=== PATIENT | male | born 1955 | race Caucasian/White ===

== ENCOUNTER → 2020-10-06 12:55 | Outpatient (BNVA) | payer SELFPAY | PROVIDERS: PCP Internal Medicine; Visit Provider Physician Assistant Medical | DX: Z02.79 Encounter for issue of other medical certificate (principal) ==

== ENCOUNTER 2021-12-09 14:39 | Emergency (ER) | payer OTHER, SELFPAY ==
--- NOTE | ~2021-12-09 | XR_ITS ---
EXAMINATION: BILATERAL FINGER X-RAY CLINICAL INFORMATION: Crush injury COMPARISON: None TECHNIQUE: 3 views of each thumb FINDINGS: Left: No acute fracture or dislocation is seen. There is air in the soft tissues adjacent to the volar IP joint of the left thumb. There is mild arthritis at the first MCP joint and first HALF-WAY joints. There is question of old trauma to the distal tuft of the second finger. Soft tissues are unremarkable. Right: There is a evidence of trauma to the soft tissues over the distal phalanx of the thumb. No fracture or soft tissue foreign body is seen. There is mild arthritis at the first MCP and HALF-WAY joints. XR/XR finger LT min 2V IMPRESSION: Right: Significant trauma to the soft tissues over the distal thumb. No fracture or soft tissue foreign body. Left: Small amount of air in the soft tissues adjacent to the volar IP joint of the left lung.
--- NOTE | ~2021-12-09 | XR_ITS ---
EXAMINATION: BILATERAL FINGER X-RAY CLINICAL INFORMATION: Crush injury COMPARISON: None TECHNIQUE: 3 views of each thumb FINDINGS: Left: No acute fracture or dislocation is seen. There is air in the soft tissues adjacent to the volar IP joint of the left thumb. There is mild arthritis at the first MCP joint and first ALF joints. There is question of old trauma to the distal tuft of the second finger. Soft tissues are unremarkable. Right: There is a evidence of trauma to the soft tissues over the distal phalanx of the thumb. No fracture or soft tissue foreign body is seen. There is mild arthritis at the first MCP and ALF joints. XR/XR finger RT min 2V IMPRESSION: Right: Significant trauma to the soft tissues over the distal thumb. No fracture or soft tissue foreign body. Left: Small amount of air in the soft tissues adjacent to the volar IP joint of the left lung.
[2021-12-09 14:52] VITALS: BP 129/93; PULSE 90; RESP 18; TEMP 36.9; O2SAT 97; BMI 24.2
[2021-12-09 18:28] LABS: MANUAL DIFF FLAG NO
[2021-12-09 18:30] LABS: Basophils Percent Auto 0.3 % (0-2); Eosinophils Percent Auto 0.1 % (0-4); Hematocrit 42.6 % (42.0-52.0); Hemoglobin 15.1 g/dl (14.0-18.0); Imm Gran Abs Auto 0.03 X10*3/uL (0.00-0.03); Imm Gran Pct Auto 0.3 % (0.0-0.4); Lymphocytes Absolute Auto 0.8 X10*3/uL (1.2-4.9); Lymphocytes Percent Auto 7.5 % (20-40); Mean Corpuscular HGB Conc 35.4 g/dl (31.0-36.0); Mean Corpuscular Hemoglobin 30.7 pg (27.0-33.0); Mean Corpuscular Volume 86.6 fL (80.0-98.0); Mean Platelet Volume 8.9 fL (9.4-12.4); Monocytes Absolute Auto 0.5 X10*3/uL (0.1-1.2); Monocytes Percent Auto 4.7 % (2-11); Neutrophils Percent Auto 87.1 % (45-73); Platelet Count 267 X10*3/uL (160-400); Red Blood Count 4.92 X10*6/uL (4.60-5.80); Red Cell Distribution Width 12.2 % (11.0-16.0); White Blood Count 10.3 X10*3/uL (4.8-10.8)
[2021-12-09 18:41] LABS: Anion Gap 13 (12-20); Blood Urea Nitrogen 15 mg/dL (9-16); Calcium 9.3 mg/dL (8.4-10.2); Carbon Dioxide 23 mmol/L (22-29); Chloride 106 mmol/L (96-108); Creatinine Clr Calc Pharmacy 82.1; Estimated Glomerular Filt Rate > 60; Glucose Random 108 mg/dL (60-115); Potassium 4.4 mmol/L (3.3-5.1); Sodium 138 mmol/L (135-145)
--- NOTE | 2021-12-09 19:22 | ED_ITS ---
HPI - Wound/Laceration General Chief Complaint: Wound/Laceration Stated Complaint: crushed thumbs, bleeding Time Seen by Provider: 12/09/21 17:16 Source: patient Mode of arrival: ambulatory History of Present Illness HPI narrative: 66-year-old male with no significant past medical history, nonsmoker, presenting to the ED complaining of bilateral thumb crush wounds S/P hands being caught between metal bar and aluminum around 230 this afternoon. Tetanus unknown denies. Denies numbness, tingling, decreased ROM Onset (ago): hour(s) Related Data Previous Rx's Medication Instructions Recorded cephalexin 500 mg capsule 500 mg PO QID 7 days #28 caps 12/09/21 morphine 15 mg immediate release 15 mg PO Q6H PRN pain (scale score 12/09/21 tablet 7-10) 3 days #9 tabs ondansetron 4 mg disintegrating 4 mg PO Q8H PRN nausea and 12/09/21 tablet vomiting #10 tabs Allergies Allergy/AdvReac Type Severity Reaction Status Date / Time clarithromycin [From BIAXIN] Allergy Mild SWELLING Unverified 12/09/21 14:52 HIVES Review of Systems Review of Systems: Constitutional: No Fever, No Chills ENT/Mouth: No Ear Pain, No Nasal Congestion, No Sinus Pain, No Hoarseness, No sore throat, No Rhinorrhea, No Swallowing Difficulty Cardiovascular: No Chest Pain, No SOB Respiratory: No Cough, No Sputum Gastrointestinal: No Nausea, No Vomiting, No Abdominal pain Genitourinary: No Dysuria, No Urinary Frequency, No Hematuria, No Urgency, No Flank Pain Musculoskeletal: + joint pain, No Myalgias, No Joint Swelling Skin: + Skin Lesions, No rash Neuro: No Weakness, No Numbness, No Paresthesias Yes all other systems are reviewed and are negative Neurologic: Denies Sensory deficit (Neuro) [facility] Past Medical History Attestation statement: The following information was validated with the patient. Social History Social History Advance Directives: No Advance Directives Information Provided: No Physical Exam Vital Signs: Vital Signs: Last Vital Signs Temp 98.4 F 12/09/21 14:52 Pulse 90 12/09/21 14:52 Resp 18 12/09/21 14:52 BP 129/93 H 12/09/21 14:52 Pulse Ox 97 12/09/21 14:52 O2 Del Method 12/09/21 14:52 BMI result Body Mass Index 24.2 Const: General: cooperative, healthy appearing and no acute distress Orientation/consciousness: patient oriented x3 Limitations: no limitations HEENT: Head: Yes normal to inspection and Yes atraumatic Ears: hearing grossly normal bilaterally General nose exam: Normal external nose present Face and sinus: Yes normal facial exam Eyes: General: appearance normal, both eyes and all related structures EOM: EOMs intact bilaterally Neck: Neck: Yes normal visual inspection and Yes no meningeal signs Resp: Effort & Inspection: normal respiratory effort and no respiratory distress Cardio: Rate: regular rate Peripheral pulses: radial pulses present and ulnar radial pulses present Skin: Rashes: no rashes Neuro: General: patient oriented x3, tone normal and no meningeal signs Gait exam (Neuro): Normal gait present Sensory Exam: No Sensory deficit (Neuro) Extrem: Other: LUE images as above. 5.0cm deep laceration. No underlying visible structures. Sensation intact to light touch. Full range of motion intact. No nail bed or nail involvement RUE images above. 7.6 cm deep laceration with visible tendon which appears intact. Sensation intact to light touch throughout. Full range of motion intact, extension and flexion. Bleeding controlled Course Course Course Narrative: XR finger RT min 2V IMPRESSION: Right: Significant trauma to the soft tissues over the distal thumb. No fracture or soft tissue foreign body. ? Left: Small amount of air in the soft tissues adjacent to the volar IP joint of the left thumb. ? > case discussed with orthopedic ROSALINA Salmeron discussed with her attending Dr. Wright. Recommended close proximity closure, and close follow-up on Saturday or Saturday in their office. Will obtain labs and give IV cefazolin -193--labs unremarkable Wounds closely approximated in the ED. Right hand wound closed by colleague Elver Ash hand closed by this customs entry writer. MDM - Wound/Laceration MDM Narrative Medical decision making narrative: 66-year-old male with no significant past medical history, nonsmoker, presenting to the ED complaining of bilateral thumb crush wounds S/P hands being caught between metal bar and aluminum around 230 this afternoon. On exam vital signs stable, NAD, please refer to images above. Concern for fractures and deep laceration vs underlying injury Plan: X-rays, tetanus update, orthopedic consult Differential Diagnosis Differential diagnosis: Likely laceration and avulsion of skin Medical Records Attestation: I reviewed the patient's medical records. Lab Data Attestation: I reviewed the patient's lab results. Result diagrams: 12/09/21 18:19 12/09/21 18:19 Labs: Lab Results 12/09/21 12/09/21 12/09/21 Range/Units 18:19 18:19 18:19 WBC 10.3 (4.8-10.8) X10*3/uL RBC 4.92 (4.60-5.80) X10*6/uL Hgb 15.1 (14.0-18.0) g/dl Hct 42.6 (42.0-52.0) % MCV 86.6 (80.0-98.0) fL MCH 30.7 (27.0-33.0) pg MCHC 35.4 (31.0-36.0) g/dl RDW 12.2 (11.0-16.0) % Plt Count 267 (160-400) X10*3/uL MPV 8.9 L (9.4-12.4) fL Immature Gran % (Auto) 0.3 (0.0-0.4) % Neut % (Auto) 87.1 H (45-73) % Lymph % (Auto) 7.5 L (20-40) % Campbell % (Auto) 4.7 (2-11) % Eos % (Auto) 0.1 (0-4) % Baso % (Auto) 0.3 (0-2) % Lymph # (Auto) 0.8 L (1.2-4.9) X10*3/uL Campbell # (Auto) 0.5 (0.1-1.2) X10*3/uL Eos # (Auto) 0.0 (0.0-0.4) X10*3/uL Baso # (Auto) 0.0 (0.0-0.2) X10*3/uL Abs Immat Gran (auto) 0.03 (0.00-0.03) X10*3/uL Absolute Neuts (auto) 9.0 H (2.0-8.3) x10*3/uL Absolute Nucleated RBC 0.000 (0.0-0.012) X10*3/uL Nucleated RBC % (auto) 0.0 (0.0-0.2) /100WBC PT 11.0 (10.0-13.1) SEC INR 1.0 (0.9-1.1) Sodium 138 (135-145) mmol/L Potassium 4.4 (3.3-5.1) mmol/L Chloride 106 (96-108) mmol/L Carbon Dioxide 23 (22-29) mmol/L Anion Gap 13 (12-20) BUN 15 (9-16) mg/dL Creatinine 0.82 (0.5-1.4) mg/dL Estim Creat Clear Calc 82.1 Estimated GFR > 60 Random Glucose 108 (60-115) mg/dL Calcium 9.3 (8.4-10.2) mg/dL Procedures Laceration Laceration 1: Site: hand Side (If applicable): left Size (cm): 5 Description: flap and irregular Depth: simple, single layer Local Anesthetic: bupivacaine 0.5% Amount of anesthesia used (mL): 5 Pre-repair: wound explored, irrigated extensively and deep structures intact Skin layer closed with: nylon Size (cm): 3-0 and 4-0 Number of sutures: 8 Technique: simple, interrupted Laceration 2: Site: hand Side (If applicable): right Size (cm): 7.6 Description: flap and irregular Depth: involves muscle layer Local Anesthetic: bupivacaine 0.5% Amount of anesthesia used (mL): 7 Pre-repair: wound explored, irrigated extensively and deep structures intact Skin layer closed with: nylon Size (cm): 3-0 Number of sutures: 11 Critical Care Time Critical Care Time Critical Care Time: Yes Total Critical Care Time: 45 Attestation: I have personally provided critical care time exclusive of time spent on separately billable procedures. Time includes review of lab data, radiology results, discussion with consultants, and monitoring for potential decompensation. Intervention performed as documented. Discharge Plan Discharge Clinical Impression: Complicated laceration of hand Patient Disposition: Home, Self-Care Instructions: Laceration (ED) Additional Instructions: You have very complicated/deep lacerations of your thumbs, it is crucial you follow-up with orthopedics on Saturday or Saturday. KEEP WOUNDS DRY AND CLEAN. AVOID GETTING EXCESSIVELY WET. NO SWIMMING. Apply bacitracin or Neosporin at home Keflex as an antibiotic please take as prescribed. if area starts to look infected, become increasingly swollen, or red, you have drainage or you fever or pain becomes unbearable return to the emergency department Morphine is an opiate pain medication, take only when pain is severe for the next 3 days. Zofran as antinausea medication Prescriptions: New cephalexin 500 mg capsule 500 mg PO QID 7 Days Qty: 28 0RF morphine 15 mg tablet 15 mg PO Q6H PRN (Reason: pain (scale score 7-10)) 3 Days Qty: 9 0RF Rx Instructions: Partial Fill upon patient request. ondansetron 4 mg tablet,disintegrating 4 mg PO Q8H PRN (Reason: nausea and vomiting) Qty: 10 0RF Referrals: Maureen Wright MD [Physician] - 2 days
[2021-12-09] MEDS: ceFAZolin Sodium/Dextrose,Iso 2 GM/50 ML PIGGYBACK IV (19:40)
[2021-12-09] MEDS: Diphth,Pertus(ACell),Tet Adult 0.5 ML SYRINGE IM (20:06)
== END 2021-12-09 20:54 | disposition home or self-care (01) ==
PROVIDERS: Physician Assistant; Emergency Provider Emergency Medicine; PCP Internal Medicine
DX: S61.412A Laceration without foreign body of left hand, initial encounter (principal); S61.411A Laceration without foreign body of right hand, initial encounter; W23.1XXA Caught, crushed, jammed, or pinched between stationary objects, initial encounter; Y93.9 Activity, unspecified; Y92.019 Unspecified place in single-family (private) house as the place of occurrence of the external cause; Y99.9 Unspecified external cause status
CPT/HCPCS: 12002; 12044; 36415; 73140; 80048; 85025; 85610; 90471; 90715; 96365; 99283; 99284; J0690